=== PATIENT | female | born 1980 | race Caucasian/White ===

== ENCOUNTER 2019-09-25 09:07 | Outpatient (CLI) | payer OTHER, SELFPAY ==
--- NOTE | ~2019-09-25 | US_ITS ---
EXAMINATION: US soft tissue UE RT DATE: 09/25/2019 09:43 INDICATION: Right upper arm lump. TECHNIQUE: Multiple grayscale and Doppler ultrasound images of the right upper arm were obtained. COMPARISON: None FINDINGS: There is no abnormal mass in the patient's area of concern in right upper arm. IMPRESSION: 1. No abnormal mass in the patient's area of concern in right upper arm. Reviewed, dictated and finalized at location A.
== END 2019-09-25 09:08 | disposition home or self-care (01) ==
LOC: ANHIMG 09:12
PROVIDERS: PCP Family Medicine; Visit Provider Physician Assistant
DX: R22.30 Localized swelling, mass and lump, unspecified upper limb (principal)
CPT/HCPCS: 76882

== ENCOUNTER 2019-10-07 13:50 | Outpatient (CLI) | payer OTHER, SELFPAY ==
--- NOTE | ~2019-10-07 | CT_ITS ---
EXAMINATION: CT UE RT wo con DATE: 10/07/2019 14:12 INDICATION: Mass in the region of the right biceps. Right arm tingling, achiness and numbness. TECHNIQUE: High resolution computed tomography (CT) of the right upper arm was performed without intr avenous contrast. Additional sagittal and coronal reconstructions were performed. Automated exposure control and iterative reconstruction technique were employed. The dose-length product was 473.49 mGy- cm. COMPARISON: Ultrasound dated 09/25/2019 FINDINGS: Soft tissues are unremarkable. No lipoma or other abnormal masses or fluid collections identified in the region of concern indicated by a BB along the medial side of the mid upper arm. Mild acromioclavi cular osteoarthritis. Right glenohumeral and elbow joint spaces are normal with no joint effusion. Mi ld cystic change versus suture anchor related to prior rotator cuff repair along the greater tuberosi ty. No pathologically enlarged right axillary lymphadenopathy. Visualized portions of the right lung are clear. IMPRESSION: 1. No correlate identified for reported mass at the medial mid right upper arm. Specifically no lipom a, masses or fluid collections identified. Reviewed, dictated and finalized at location A. IMPRESSION: 1. No correlate identified for reported mass at the medial mid right upper arm. Specifically no lipoma, masses or fluid collections identified.
== END 2019-10-07 13:51 | disposition home or self-care (01) ==
PROVIDERS: PCP Family Medicine; Visit Provider Surgery
DX: R22.31 Localized swelling, mass and lump, right upper limb (principal)
CPT/HCPCS: 73200

== ENCOUNTER 2019-11-12 08:05 | Outpatient (CLI) | payer OTHER, SELFPAY ==
--- NOTE | ~2019-11-12 | MM_ITS ---
EXAMINATION: MM screening [facility] BI w mary alice HISTORY: Screening mammogram TECHNIQUE: Craniocaudal and mediolateral oblique 3-D tomosynthesis images were obtained and synthetic 2-D images were generated. CAD analysis was submitted and interpreted. COMPARISON: None, baseline BREAST PARENCHYMAL COMPOSITION: The breasts are heterogeneously dense, which may obscure small masses . FINDINGS: RIGHT BREAST: Asymmetry is present in the middle third of the upper right breast on the mediolateral oblique view. LEFT BREAST: There is no evidence of suspicious mass, calcification, or architectural distortion to s uggest malignancy. IMPRESSION: 1. Right breast asymmetry on the mediolateral oblique view. 2. Additional mammographic views and possible breast ultrasound are recommended to evaluate for malig yudy and establish a baseline given that this is the first mammographic examination. BI-RADS Category 0: Incomplete: Needs additional imaging evaluation. Reviewed, dictated and finalized at location A. IMPRESSION: 1. Right breast asymmetry on the mediolateral oblique view. 2. Additional mammographic views and possible breast ultrasound are recommended to evaluate for malignancy and establish a baseline given that this is the fir st mammographic examination. BI-RADS Category 0: Incomplete: Needs additional imaging evaluation.
== END 2019-11-12 08:06 | disposition home or self-care (01) ==
LOC: ANHIMG 08:07
PROVIDERS: PCP Family Medicine; Visit Provider Obstetrics & Gynecology
DX: Z12.31 Encounter for screening mammogram for malignant neoplasm of breast (principal); N64.89 Other specified disorders of breast
CPT/HCPCS: 77063; 77067

== ENCOUNTER 2019-12-21 11:16 | Outpatient (CLI) | payer OTHER, SELFPAY ==
--- NOTE | ~2019-12-21 | MM_ITS ---
EXAMINATION: MM diagnostic mammo unilat RT HISTORY: Right breast asymmetry on screening mammogram TECHNIQUE: Additional 3-D tomosynthesis images of the right breast were performed and synthetic 2-D i mages were generated. CAD analysis was submitted and interpreted. COMPARISON: 11/12/2019 FINDINGS: The right breast asymmetry described on screening mammogram disperses with spot compression . No suspicious mass, calcification, or architectural distortion are identified. IMPRESSION: 1. No mammographic evidence of malignancy. 2. Recommend routine screening mammography in one year. BI-RADS Category 1: Negative Reviewed, dictated and finalized at location A. RANCE SALESMAN
== END 2019-12-21 11:17 | disposition home or self-care (01) ==
LOC: ANHIMG 11:17
PROVIDERS: PCP Family Medicine; Visit Provider Obstetrics & Gynecology
DX: R92.8 Other abnormal and inconclusive findings on diagnostic imaging of breast (principal)
CPT/HCPCS: 77065

== ENCOUNTER 2020-08-31 15:02 | Emergency (ER) | payer OTHER, SELFPAY ==
[2020-08-31 15:10] VITALS: BP 120/70; PULSE 68; RESP 20; TEMP 36.9; O2SAT 99
--- NOTE | 2020-08-31 15:13 | ED.EAR ---
HPI - Ear Problem General Chief complaint: Ear Stated complaint: Ear pain Time Seen by Provider: 08/31/20 15:13 Source: patient and RN notes reviewed History of Present Illness HPI Narrative: Patient is a 39-year-old female who presents the urgent care with complaints of right ear pain. Patient states is been off and on for approximately 2 weeks and now she is having decreased hearing in the right ear. Patient states she has been using [id number] swimmer's ear drops and washing it out with peroxide without any improvements. Patient also reports of some drainage from that right ear. Denies of any other upper respiratory complaints. Denies of any fever. No other acute complaints. No acute distress noted. Patient aware of the plan of care. Some parts of this dictation were generated by voice recognition software and may contain typographical and/or grammatical inaccuracies. Related Data Allergies Allergy/AdvReac Type Severity Reaction Status Date / Time Penicillins Allergy Mild HIVES Verified 08/31/20 15:05 amoxicillin Allergy Unknown Skin Verified 08/31/20 15:05 Reaction levofloxacin Allergy Unknown Skin Verified 08/31/20 15:05 Reaction Review of Systems Review of Systems: Narrative: CONSTITUTIONAL: Denies fever, chills, or sweats. EYES: Denies visual changes, redness, or discharge. ENT: Denies rhinorrhea, congestion, sore throat. Reports of right otalgia and mild drainage from the ear CARDIOVASCULAR: Denies chest pain, palpitations, or edema. RESPIRATORY: Denies cough or dyspnea. GASTROINTESTINAL: Denies abdominal pain, nausea, vomiting, or diarrhea. GENITOURINARY: Denies dysuria or hematuria. SKIN: Denies rash or itching. MUSCULOSKELETAL: Denies back pain, joint pain, or myalgia. NEUROLOGIC: Denies headache, numbness, or weakness. All other systems reviewed are negative, except as documented in HPI. [facility] Past Medical History Medical History (Updated 08/31/20 @ 15:22 by BYRON Johns) Stomach ulcer Surgical History Surgical History H/O dilation and curettage Hx laparoscopic cholecystectomy Hx of LASIK Family History Family History Mother Hypertension Kidney disease Liver disease Father Diabetes mellitus Unknown Diabetes mellitus Cerebrovascular accident Hypertension Breast cancer Social History Social History Smoking status: Never smoker Alcohol intake: current Substance use: unknown Additional occupation/education comments: RN Gender identity (if verbalized by the patient): Female Comments At the time of my signature, I reviewed and agree with the nursing past medical, surgical, social, and family history. There is no relevant family history pertinent to the patient complaint. Exam Narrative: Exam Narrative: GENERAL: This is a well-nourished, well-developed patient, in no apparent distress. HEAD: normocephalic, atraumatic. EYES: PERRL. Sclera clear/white. Vision is grossly intact. EARS: External ears normal, left auditory canal clear and without drainage, mild irritation to the outer canal of the right without drainage. Mild fluid noted behind right TM without otitis. Left TMs normal without perforation. Hearing grossly intact. NOSE: External nose normal with no obvious nasal discharge, nares without redness, no rhinorrhea. THROAT: Mucous membranes moist, posterior pharynx clear. Mild postnasal drainage NECK: Neck supple CARDIOVASCULAR: Regular rate and rhythm without murmurs, gallops, or rubs. RESPIRATORY: Clear to auscultation. Breath sounds equal bilaterally. No wheezes, rales, or rhonchi. SKIN: warm, intact with no suspicious lesions or rash, good texture and turgor. NEURO: awake, alert, and oriented to person, place and time. There were no obvious focal neurologic abnormalities.
== END 2020-08-31 15:29 | disposition home or self-care (01) ==
PROVIDERS: Emergency Provider Nurse Practitioner Family
DX: H60.91 Unspecified otitis externa, right ear (principal)
CPT/HCPCS: 99213; G0463

== ENCOUNTER 2020-12-01 07:51 | Outpatient (CLI) | payer OTHER, SELFPAY ==
--- NOTE | ~2020-12-01 | MM_ITS ---
EXAMINATION: MM screening [facility] BI w mary alice HISTORY: Screening mammogram TECHNIQUE: Craniocaudal and mediolateral oblique 3-D tomosynthesis images were obtained and synthetic 2-D images were generated. CAD analysis was submitted and interpreted. COMPARISON: 12/21/2019 diagnostic right mammogram 11/12/2019 bilateral digital screening mammogram BREAST PARENCHYMAL COMPOSITION: There are scattered areas of fibroglandular density. FINDINGS: Occasional bilateral benign calcifications. There is no evidence of suspicious mass, calcif ication, or architectural distortion to suggest malignancy in either breast. There has been no suspic ious interval change. IMPRESSION: 1. No mammographic evidence of malignancy. 2. Recommend routine screening mammography in one year. BI-RADS Category 1: Negative Reviewed, dictated and finalized at location A.
== END 2020-12-01 07:52 | disposition home or self-care (01) ==
LOC: ANHIMG 07:55
PROVIDERS: PCP Family Medicine; Visit Provider Obstetrics & Gynecology
DX: Z12.31 Encounter for screening mammogram for malignant neoplasm of breast (principal)
CPT/HCPCS: 77063; 77067

== ENCOUNTER 2021-11-28 06:37 | Outpatient (CLI) | payer OTHER, SELFPAY ==
[2021-11-28 07:21] LABS: Alanine Aminotransferase 26 U/L (6-35); Albumin Level 4.7 g/dL (3.5-5.1); Alkaline Phosphatase 56 U/L (38-126); Anion Gap 10 mmol/L (8-16); Aspartate Amino Transferase 27 U/L (14-36); Bilirubin,Total 1.7 mg/dL (0.2-1.3); Blood Urea Nitrogen 14 mg/dL (7-17); Calcium 8.9 mg/dL (8.4-10.2); Carbon Dioxide 27 mmol/L (22-30); Chloride 102 mmol/L (98-107); Cholesterol 153 mg/dL (0-200); Estimated Glomerular Filt Rate > 60; Glucose 95 mg/dL (65-110); HDL Direct 60 mg/dL; Potassium 3.7 mmol/L (3.4-5.0); Sodium 139 mmol/L (137-145); Triglycerides 66 mg/dL (<150)
[2021-11-28 07:32] LABS: LDL Cholesterol Direct 70 mg/dL
== END 2021-11-28 06:38 | disposition home or self-care (01) ==
LOC: ANHOBOP 06:40
PROVIDERS: PCP Physician Assistant; Visit Provider Obstetrics & Gynecology
DX: Z00.00 Encounter for general adult medical examination without abnormal findings (principal)
CPT/HCPCS: 36415; 80053; 80061

== ENCOUNTER → 2021-12-10 08:58 | Outpatient (CLI) | payer OTHER, SELFPAY ==
--- NOTE | ~2021-12-10 | US_ITS ---
US abdomen limited DATE: 12/10/2021 09:16 INDICATION: Elevated serum bilirubin. Jaundice. Status post cholecystectomy. TECHNIQUE: Real-time imaging of liver, pancreas, gallbladder fossa COMPARISON: None FINDINGS: Normal hepatopedal portal venous flow direction. The pancreatic tail is obscured by bowel g as. No hepatic or pancreatic space-occupying mass lesion is detected otherwise. No surface nodularity of the liver is noted. The common bile duct measures 4 mm, normal. IMPRESSION: Status post cholecystectomy No bile duct dilatation Pancreatic tail is obscured; otherwise no pancreatic or hepatic mass lesion is noted Reviewed, dictated and finalized at Location A. Reviewed, dictated and finalized at location A.
== END ==
PROVIDERS: PCP Physician Assistant; Visit Provider Physician Assistant
DX: R10.9 Unspecified abdominal pain (principal); R17 Unspecified jaundice; Z90.49 Acquired absence of other specified parts of digestive tract
CPT/HCPCS: 76705

== ENCOUNTER 2021-12-12 07:21 | Outpatient (CLI) | payer OTHER, SELFPAY ==
[2021-12-12 08:00] LABS: Alanine Aminotransferase 20 U/L (6-35); Albumin Level 4.2 g/dL (3.5-5.1); Alkaline Phosphatase 43 U/L (38-126); Aspartate Amino Transferase 23 U/L (14-36)
== END 2021-12-12 07:22 | disposition home or self-care (01) ==
LOC: ANHLAB 07:22
PROVIDERS: PCP Physician Assistant; Visit Provider Physician Assistant
DX: R17 Unspecified jaundice (principal)
CPT/HCPCS: 36415; 80076

== ENCOUNTER 2022-01-12 08:37 | Outpatient (CLI) | payer OTHER, SELFPAY ==
--- NOTE | ~2022-01-12 | MM_ITS ---
EXAMINATION: MM screening [facility] BI w mary alice HISTORY: Screening mammogram TECHNIQUE: Craniocaudal and mediolateral oblique 3-D tomosynthesis images were obtained and synthetic 2-D images were generated. CAD analysis was submitted and interpreted. COMPARISON: 12/01/2020, 12/21/2019, 11/12/2019 BREAST PARENCHYMAL COMPOSITION: The breasts are heterogeneously dense, which may obscure small masses . FINDINGS: No suspicious mass, calcification, or architectural distortion are identified in either alfonso ast to suggest malignancy. There has been no suspicious interval change. IMPRESSION: 1. No mammographic evidence of malignancy. 2. Recommend routine screening mammography in one year. BI-RADS Category 1: Negative Reviewed, dictated and finalized at location A. [employer]
== END 2022-01-12 08:38 | disposition home or self-care (01) ==
PROVIDERS: PCP Physician Assistant; Visit Provider Obstetrics & Gynecology
DX: Z12.31 Encounter for screening mammogram for malignant neoplasm of breast (principal)
CPT/HCPCS: 77063; 77067

== ENCOUNTER 2023-04-04 08:07 | Outpatient (CLI) | payer OTHER, SELFPAY ==
[2023-04-04 08:55] LABS: Alanine Aminotransferase 22 U/L (6-35); Alkaline Phosphatase 53 U/L (38-126); Anion Gap 3 mmol/L (8-16); Aspartate Amino Transferase 28 U/L (14-36); Bilirubin,Total 1.9 mg/dL (0.2-1.3); Blood Urea Nitrogen 15 mg/dL (7-17); Calcium 8.9 mg/dL (8.4-10.2); Carbon Dioxide 28 mmol/L (22-30); Chloride 105 mmol/L (98-107); Cholesterol 146 mg/dL (0-200); Estimated Glomerular Filt Rate > 60; Glucose 90 mg/dL (65-110); HDL Direct 56 mg/dL; Sodium 136 mmol/L (137-145); Triglycerides 55 mg/dL (<150)
[2023-04-04 09:06] LABS: LDL Cholesterol Direct 75 mg/dL
[2023-04-04 09:08] LABS: Rheumatoid Factor < 12.0 IU/ML (<12)
[2023-04-04 09:27] LABS: Erythrocyte Sedimentation Rate 7 mm/hr (0-20)
== END 2023-04-04 08:08 | disposition home or self-care (01) ==
LOC: ANHLAB 08:09
PROVIDERS: PCP Physician Assistant; Visit Provider Obstetrics & Gynecology
DX: Z00.00 Encounter for general adult medical examination without abnormal findings (principal); M25.50 Pain in unspecified joint
CPT/HCPCS: 36415; 80053; 80061; 84443; 85652; 86038; 86430

== ENCOUNTER 2023-04-23 13:55 | Outpatient (CLI) | payer OTHER, SELFPAY ==
--- NOTE | ~2023-04-23 | MM_ITS ---
EXAMINATION: MM screening [facility] BI w mary alice HISTORY: Screening mammogram TECHNIQUE: Craniocaudal and mediolateral oblique 3-D tomosynthesis images were obtained and synthetic 2-D images were generated. CAD analysis was submitted and interpreted. COMPARISON: 01/12/2022, 12/01/2020 bilateral screening mammogram examinations BREAST PARENCHYMAL COMPOSITION: There are scattered areas of fibroglandular density. FINDINGS: There is no evidence of suspicious mass, calcification, or architectural distortion to sugg est malignancy in either breast. There has been no suspicious interval change. IMPRESSION: 1. No mammographic evidence of malignancy. 2. Recommend routine screening mammography in one year. BI-RADS Category 1: Negative Reviewed, dictated and finalized at location A.
== END 2023-04-23 13:56 ==
LOC: MICIMG 13:56
PROVIDERS: PCP Obstetrics & Gynecology; Visit Provider Obstetrics & Gynecology
DX: Z12.31 Encounter for screening mammogram for malignant neoplasm of breast (principal)
CPT/HCPCS: 77063; 77067

== ENCOUNTER 2023-12-03 12:20 | Emergency (ER) | payer OTHER, SELFPAY ==
--- NOTE | ~2023-12-03 | XR_ITS ---
EXAMINATION: XR chest 2V DATE: 12/03/2023 13:55 INDICATION: Chest pain. Fever. Shortness of breath. Cough. TECHNIQUE: Frontal and lateral views of the chest were obtained. COMPARISON: Chest 2 views 06/09/2013 FINDINGS: There are airspace opacities in right lower lobe, consistent with pneumonia. No pleural eff usion or pneumothorax. The heart size is normal. Surgical clips in the right upper quadrant are likel y from cholecystectomy. IMPRESSION: 1. Right lower lobe pneumonia. Reviewed, dictated and finalized at location A.
--- NOTE | 2023-12-03 12:21 | ECG_ITS ---
Test Date: 2023-12-03 12:28:30 Measurements Intervals [place] Rate: 116 P: 72 [place]: 167 QRS: 66 QRSD: 85 T: 75 QT: 341 QTc: 476 Interpretive Statements SINUS TACHYCARDIA POSSIBLE LEFT ATRIAL ENLARGEMENT [-0.1mV P WAVE IN V1/V2] LOW QRS VOLTAGE IN PRECORDIAL LEADS [QRS DEFLECTION < 1.0 mV IN CHEST LEADS] SEPTAL MYOCARDIAL INFARCTION , OF INDETERMINATE AGE [40+ ms Q WAVE IN V1/V2] ABNORMAL ECG No previous ECG available for comparison Electronically Signed On 12-03-2023 13:49:11 CDT by John Bowden M.D.
[2023-12-03 12:36] VITALS: BP 131/70; PULSE 100; RESP 18; TEMP 37.1; O2SAT 100
[2023-12-03 12:57] LABS: Alanine Aminotransferase 27 U/L (6-35); Albumin Level 4.1 g/dL (3.5-5.1); Alkaline Phosphatase 73 U/L (38-126); Anion Gap 8 mmol/L (4-12); Aspartate Amino Transferase 37 U/L (14-36); Bilirubin,Total 1.5 mg/dL (0.2-1.3); Blood Urea Nitrogen 12 mg/dL (7-17); Calcium 8.9 mg/dL (8.4-10.2); Carbon Dioxide 26 mmol/L (22-30); Chloride 101 mmol/L (98-107); Estimated CRCL calculation 111 ml/min; Estimated Glomerular Filt Rate > 60; Glucose 138 mg/dL (65-110); Lipase 133 U/L (23-300); Potassium 3.1 mmol/L (3.4-5.0); Sodium 135 mmol/L (137-145)
[2023-12-03 12:59] LABS: INR 1.1; Partial Thromboplastin Time 27.4 Seconds (22.3-36.8); Prothrombin Time 14.8 Seconds (11.1-14.7)
[2023-12-03 13:02] LABS: Basophils Percent Auto 0.4 % (0.2-1.2); Eosinophils Percent Auto 0.6 % (0-4.4); Hematocrit 44.2 % (37.0-47.0); Hemoglobin 14.7 g/dL (12.0-15.0); Immature Granulocyte Absolute 0.02 K/mm3 (0.00-0.031); Immature Granulocyte Percent A 0.3 % (0-0.5); Lymphocytes Absolute Auto 0.43 K/mm3 (0.9-3.2); Lymphocytes Percent Auto 6.2 % (18.3-44.2); Mean Corpuscular HGB Conc 33.3 g/dl (32-36); Mean Corpuscular Hemoglobin 29.4 pg (26-34); Mean Corpuscular Volume 88.4 fl (80-100); Mean Platelet Volume 9.5 fl (7.4-10.4); Monocytes Absolute Auto 0.3 K/mm3 (0.1-0.6); Monocytes Percent Auto 4.2 % (2.6-8.5); Neutrophils Absolute Auto 6.1 K/mm3 (1.3-6.7); Neutrophils Percent Auto 88.3 % (45.5-73.1); Platelet Count Result 215 k/mm3 (150-375); Red Cell Distribution Width 12.5 % (11.5-14.5)
[2023-12-03 13:09] LABS: Troponin I < 0.012 ng/mL (0.000-0.034)
[2023-12-03 13:46] VITALS: BP 111/70; PULSE 92; RESP 17; O2SAT 96
[2023-12-03 13:54] VITALS: BP 116/71; PULSE 90; RESP 20; O2SAT 98
--- NOTE | 2023-12-03 14:02 | ED_ITS ---
HPI - General Adult General Chief complaint: Chest Pain Stated complaint: fever chest tightness Time Seen by Provider: 12/03/23 13:44 History of Present Illness HPI narrative: Patient is a 43-year-old female who presents ER with fever and cough. She has mild tightness in her chest. Concerned she may have pneumonia. Occasionally productive cough. She does report being exposed to viral meningitis a couple weeks ago and has had mild headache but that resolved yesterday. Related Data Allergies Allergy/AdvReac Type Severity Reaction Status Date / Time Penicillins Allergy Mild HIVES Verified 11/14/21 13:46 amoxicillin Allergy Unknown Skin Verified 11/14/21 13:46 Reaction levofloxacin Allergy Unknown Skin Verified 11/14/21 13:46 Reaction Review of Systems Review of Systems: All systems reviewed & are unremarkable except as noted in HPI and below Constitutional: Constitutional: Reports no additional constitutional complaints Cardiovascular: Cardiovascular: Reports no additional cardiovascular complaints Respiratory: Respiratory: Reports no additional respiratory complaints Gastrointestinal: Gastrointestinal: Reports no additional gastrointestinal complaints Musculoskeletal: Musculoskeletal: Reports no additional musculoskeletal complaints PMF Past Medical History Medical History (Updated 12/03/23 @ 14:10 by Lopez Lu MD) Stomach ulcer Surgical History Surgical History H/O dilation and curettage Hx laparoscopic cholecystectomy Hx of LASIK Family History Family History Mother Hypertension Kidney disease Liver disease Rheumatoid arthritis Father Diabetes mellitus Unknown Diabetes mellitus Cerebrovascular accident Hypertension Breast cancer Social History Social History Social History: Caffeine-none Smoking status: Never smoker Alcohol intake: current Alcohol use details: occasionally Substance use: unknown Living arrangements: with family Occupation/Education: occupation Additional occupation/education comments: RN Gender identity (if verbalized by the patient): Female Exam Narrative: GENERAL: Well-appearing, well-nourished, and in no acute distress. HEAD: Normocephalic, atraumatic. CHEST: Mild crackles right base. No respiratory distress. HEART: Regular rate and rhythm. Normal peripheral pulses. ABDOMEN: Soft, nontender, nondistended. EXTREMITIES: Normal range of motion. No edema. SKIN: Warm, dry, no rash. NEURO: Alert and oriented x3. PSYCH: Normal mood and affect. Course Course Emergency Course: Patient resting comfortably. Informed of lab and imaging results. Discharge home with antibiotics. Vital Signs Vital signs: Vital Signs Temperature 98.8 F 12/03/23 12:36 Pulse Rate 100 12/03/23 12:36 Respiratory Rate 18 12/03/23 12:36 Blood Pressure 131/70 12/03/23 12:36 Pulse Oximetry 100 12/03/23 12:36 Oxygen Delivery Room Air 12/03/23 12:36 Temperature 98.8 F 12/03/23 12:36 Pulse Rate 100 12/03/23 12:36 Respiratory Rate 18 12/03/23 12:36 Blood Pressure 131/70 12/03/23 12:36 Pulse Oximetry 100 12/03/23 12:36 Oxygen Delivery Room Air 12/03/23 12:36 Medical Decision Making Vital Signs Vital Signs: Vital Signs Temperature 98.8 F 12/03/23 12:36 Pulse Rate 100 12/03/23 12:36 Respiratory Rate 18 12/03/23 12:36 Blood Pressure 131/70 12/03/23 12:36 Pulse Oximetry 100 12/03/23 12:36 Oxygen Delivery Room Air 12/03/23 12:36 Temperature 98.8 F 12/03/23 12:36 Pulse Rate 100 12/03/23 12:36 Respiratory Rate 18 12/03/23 12:36 Blood Pressure 131/70 12/03/23 12:36 Pulse Oximetry 100 12/03/23 12:36 Oxygen Delivery Room Air 12/03/23 12:36 Lab Data 12/03/23 12:39 12/03/23 12:39 Labs: Lab Results 12/03/23 Range/Units 12:39 WBC 7.0 (4.5-10.0) K/mm3 RBC 5.00 (4.2-5.4) M/mm3 Hgb 14.7 (12.0-15.0) g/dL Hct 44.2 (37.0-47.0) % MCV 88.4 (80-100) fl MCH 29.4 (26-34) pg MCHC 33.3 (32-36) g/dl RDW 12.5 (11.5-14.5) % Plt Count 215 (150-375) k/mm3 MPV 9.5 (7.4-10.4) fl Immature Gran % (Auto) 0.3 (0-0.5) % Neut % (Auto) 88.3 H (45.5-73.1) % Lymph % (Auto) 6.2 L (18.3-44.2) % [place] % (Auto) 4.2 (2.6-8.5) % Eos % (Auto) 0.6 (0-4.4) % Baso % (Auto) 0.4 (0.2-1.2) % Lymph # (Auto) 0.43 L (0.9-3.2) K/mm3 [place] # (Auto) 0.3 (0.1-0.6) K/mm3 Eos # (Auto) 0.0 (0-0.3) K/mm3 Baso # (Auto) 0.0 (0.0-0.1) K/mm3 Abs Immat Gran (auto) 0.02 (0.00-0.031) K/mm3 Absolute Neuts (auto) 6.1 (1.3-6.7) K/mm3 Absolute Nucleated RBC 0.000 (0.0-0.012) K/mm3 Nucleated RBC % 0.0 (0.0-0.2) % PT 14.8 H (11.1-14.7) Seconds INR 1.1 APTT 27.4 (22.3-36.8) Seconds Sodium 135 L (137-145) mmol/L Potassium 3.1 L (3.4-5.0) mmol/L Chloride 101 (98-107) mmol/L Carbon Dioxide 26 (22-30) mmol/L Anion Gap 8 (4-12) mmol/L BUN 12 (7-17) mg/dL Creatinine 0.60 L (0.7-1.0) mg/dL Estim Creat Clear Calc 111 ml/min Estimated GFR > 60 (59 - ) Glucose 138 H (65-110) mg/dL Calcium 8.9 (8.4-10.2) mg/dL Total Bilirubin 1.5 H (0.2-1.3) mg/dL AST 37 H (14-36) U/L ALT 27 (6-35) U/L Alkaline Phosphatase 73 (38-126) U/L Troponin I < 0.012 (0.000-0.034) ng/mL Total Protein 7.0 (6.3-8.2) g/dL Albumin 4.1 (3.5-5.1) g/dL Lipase 133 (23-300) U/L Imaging Data Radiologist's impression: ITS Impressions Chest X-Ray 12/03/23 13:57 IMPRESSION: 1. Right lower lobe pneumonia. ECG Data EKG #1: ECG completion date: 12/03/23 ECG completion time: 12:28 EKG Interpretation: tachycardia (116), sinus rhythm, non-specific ST changes, normal QRS, normal QT and NL axis Discharge Plan Discharge Clinical Impression: Pneumonia Patient Disposition: Home, Self-Care Condition: Stable Instructions: Antibiotic Form, Bacterial Pneumonia (ED) Additional Instructions: Please return to the emergency department if you develop severe and persistent chest pain, difficulty breathing, dizziness, leg swelling or if you are coughing up blood as these can be signs of a medical emergency. Please call your doctor for a follow up appointment to determine the need for further testing. Prescriptions: New doxycycline hyclate 100 mg tablet 100 mg PO BID Qty: 10 0RF Follow-up/Referrals: Alton Mcguire MD [Primary Care Provider] - 1 Week
[2023-12-03 14:16] VITALS: BP 142/73; PULSE 75; RESP 16; TEMP 36.7; O2SAT 99
== END 2023-12-03 14:20 | disposition home or self-care (01) ==
PROVIDERS: Emergency Provider Emergency Medicine; PCP Obstetrics & Gynecology
DX: J18.9 Pneumonia, unspecified organism (principal)
CPT/HCPCS: 36415; 71046; 80053; 83690; 84484; 85025; 85610; 85730; 93005; 99284

== ENCOUNTER 2024-05-13 13:22 | Outpatient (CLI) | payer OTHER, SELFPAY ==
--- NOTE | ~2024-05-13 | MM_ITS ---
EXAMINATION: MM screening [facility] BI w mary alice HISTORY: Screening TECHNIQUE: Craniocaudal and mediolateral oblique 3-D tomosynthesis images were obtained and synthetic 2-D images were generated. CAD analysis was submitted and interpreted. COMPARISON: Comparison to multiple prior studies sequentially, with oldest reviewed study dated 11/11. BREAST PARENCHYMAL COMPOSITION: Not dense: There are scattered areas of fibroglandular density. FINDINGS: There is no evidence of suspicious mass, calcification, or architectural distortion to sugg est malignancy in either breast. There has been no suspicious interval change. IMPRESSION: 1. No mammographic evidence of malignancy. 2. Recommend routine screening mammography in one year. BI-RADS Category 1: Negative Reviewed, dictated and finalized at location A.
== END 2024-05-13 13:23 | disposition home or self-care (01) ==
LOC: MICIMG 13:24
PROVIDERS: PCP Obstetrics & Gynecology; Visit Provider Obstetrics & Gynecology
DX: Z12.31 Encounter for screening mammogram for malignant neoplasm of breast (principal)
CPT/HCPCS: 77063; 77067

== ENCOUNTER 2024-12-31 07:59 | Outpatient (CLI) | payer OTHER, SELFPAY ==
[2024-12-31 08:28] LABS: Hematocrit 43.9 % (37.0-47.0); Hemoglobin 14.5 g/dL (12.0-15.0); Mean Corpuscular HGB Conc 33.0 g/dl (32-36); Mean Corpuscular Hemoglobin 29.2 pg (26-34); Mean Corpuscular Volume 88.3 fl (80-100); Platelet Count Result 286 k/mm3 (150-375); Red Blood Count 4.97 M/mm3 (4.2-5.4); White Blood Count 6.1 K/mm3 (4.5-10.0)
[2024-12-31 08:51] LABS: Alanine Aminotransferase 19 U/L (6-35); Albumin Level 4.2 g/dL (3.5-5.1); Alkaline Phosphatase 48 U/L (38-126); Anion Gap 6 mmol/L (4-12); Aspartate Amino Transferase 32 U/L (14-36); Bilirubin,Total 1.5 mg/dL (0.2-1.3); Blood Urea Nitrogen 9 mg/dL (7-17); Calcium 8.9 mg/dL (8.4-10.2); Carbon Dioxide 25 mmol/L (22-30); Chloride 104 mmol/L (98-107); Cholesterol 144 mg/dL (0-200); Estimated Glomerular Filt Rate > 60; Glucose 91 mg/dL (65-110); HDL Direct 57 mg/dL; Potassium 3.9 mmol/L (3.4-5.0); Sodium 135 mmol/L (137-145); Total Protein 7.0 g/dL (6.3-8.2); Triglycerides 62 mg/dL (<150)
[2024-12-31 09:28] LABS: Thyroid Stimulating Hormone 1.470 uIU/mL (0.465-4.680)
[2024-12-31 10:05] LABS: Vitamin B12 > 1000.0 pg/mL (239-931)
[2024-12-31 10:22] LABS: Iron 138 ug/dL (37-170)
[2024-12-31 10:34] LABS: Percent Iron Saturation 40 % (20-50)
[2025-01-01 07:09] LABS: FSH 17.8 mIU/mL (.)
[2025-01-01 09:08] LABS: LH 31.1 mIU/mL (.)
[2025-01-03 23:07] LABS: Estrogens, Total 450 pg/mL (.)
[2025-01-04 15:09] LABS: ANA by IFA Rfx Titer/Pattern Negative (.)
[2025-01-05 22:07] LABS: Estradiol, Sensitive 137.3 pg/mL (.)
== END 2024-12-31 08:00 | disposition home or self-care (01) ==
LOC: ANHLAB 08:00
PROVIDERS: PCP Family Medicine; Visit Provider Nurse Practitioner Family
DX: R17 Unspecified jaundice (principal); Z13.29 Encounter for screening for other suspected endocrine disorder; R53.83 Other fatigue; M25.50 Pain in unspecified joint; R63.5 Abnormal weight gain; L30.9 Dermatitis, unspecified
CPT/HCPCS: 36415; 80053; 80061; 82306; 82607; 82670; 82672; 82746; 83001; 83002; 83540; 83550; 84443; 85027; 85652; 86038